=== PATIENT | male | born 1975 | race Hispanic/Latino ===

== ENCOUNTER 2018-07-31 17:28 | Emergency (ER) | payer BC ==
[2018-07-31] MEDS ORDERED: Sodium Chloride 0.9% 1,000 ML IV SCH (19:00)
[2018-07-31 19:26] LABS: BASO # 0.1 K/uL (0.0-0.2); BASO % 0.6 % (0.0-2.0); EOS # 0.1 K/uL (0.0-0.7); HEMOGLOBIN 13.9 g/dL (12.0-18.0); LYMPH # 0.7 K/uL (1.0-4.3); LYMPH % 6.2 % (20.0-40.0); MEAN CELL VOLUME 89.2 fl (80.0-94.0); MEAN CORPUSCULAR HEMOGLOBIN 29.9 pg (27.0-31.0); MEAN CORPUSCULAR HGB CONC 33.5 g/dL (33.0-37.0); MEAN PLATELET VOLUME 7.7 fl (7.2-11.7); MONO # 0.9 K/uL (0.0-0.8); MONO % 7.7 % (0.0-10.0); NEUT # 9.7 K/uL (1.8-7.0); NEUT % 84.5 % (50.0-75.0); NRBC % 0.1 % (0.0-0.0); PLATELET COUNT 229 K/uL (130-400); RBC 4.64 Mil/uL (4.40-5.90); WHITE BLOOD COUNT 11.4 K/uL (4.8-10.8)
--- NOTE | 2018-07-31 19:39 | ED PDOC ---
HPI: Abdomen Time Seen by Provider: 07/31/18 18:28 Chief Complaint (Nursing): Abdominal Pain Chief Complaint (Provider): Abdominal Pain, Nausea History Per: Patient History/Exam Limitations: no limitations Onset/Duration Of Symptoms: Hrs (since 1300 today) Current Symptoms Are (Timing): Still Present Pain Scale Rating Of: 7 Location Of Pain/Discomfort: RLQ Quality Of Discomfort: Sharp Additional Complaint(s): 43 year old male presents to the ED for evaluation of 7/10 sharp right lower quadrant abdominal pain associated with nausea onset 1300 today. Patient states that the pain is constant and worsening, but has taken no medications prior to arrival. Otherwise, (-) vomiting, (-) diarrhea, (-) fever, (-) chills, (-) cough , (-) shortness of breath, (-) urinary sx, (-) hx of abdominal surgery, (-) hx of renal colic. PMD: Jenniffer Cohen Past Medical History Reviewed: Historical Data, Nursing Documentation, Vital Signs Vital Signs: Last Vital Signs Temp 98.6 F 08/01/18 01:26 Pulse 82 08/01/18 01:26 Resp 18 08/01/18 01:26 BP 148/72 08/01/18 01:26 Pulse Ox 97 08/02/18 00:01 - Medical History PMH: HTN - Surgical History Surgical History: No Surg Hx - Family History Family History: States: Unknown Family Hx - Social History Current smoker - smoking cessation education provided: No Alcohol: Social Drugs: Denies - Home Medications Home Medications: Ambulatory Orders Medication Instructions Recorded Amlodipine Besylate/Benazepril 1 cap PO DAILY #30 cap 08/01/18 [Amlodipine Besylate and Benazepril HCl 5 mg-4] Ibuprofen [Motrin Tab] 800 mg PO Q8 PRN #20 tab 08/01/18 Tamsulosin [Flomax] 0.4 mg PO DAILY #7 cap 08/01/18 traMADol [Ultram] 50 mg PO Q6H PRN #12 tab 08/01/18 - Allergies Allergies/Adverse Reactions: Allergies Allergy/AdvReac Type Severity Reaction Status Date / Time No Known Allergies Allergy Verified 07/31/18 18:08 Review of Systems ROS Statement: Except As Marked, All Systems Reviewed And Found Negative Constitutional: Negative for: Fever, Chills Respiratory: Negative for: Cough, Shortness of Breath Gastrointestinal: Positive for: Nausea, Abdominal Pain (RLQ). Negative for: Vomiting, Diarrhea Genitourinary Male: Negative for: Dysuria, Frequency Physical Exam - Reviewed Nursing Documentation Reviewed: Yes Vital Signs Reviewed: Yes - Physical Exam Comments: GENERAL APPEARANCE: Patient is awake, alert, oriented x3. Patient is obese, but resting comfortably, in no acute distress SKIN: Warm, dry; (-) cyanosis. EYES: (-) conjunctival pallor, (-) scleral icterus. ENMT: Mucous membranes moist. Airway patent, (-) stridor. NECK: Supple, FROM CHEST AND RESPIRATORY: (-) rales, (-) rhonchi, (-) wheezes; breath sounds equal bilaterally. Respirations even and nonlabored. HEART AND CARDIOVASCULAR: (-) irregularity ABDOMEN AND GI: Soft (-) distention. Bowel sounds active x4; (+) right lower quadrant tenderness (-) guarding (+) mild McBurney's point tenderness, (-) rebound, (-) palpable masses, (-) CVA tenderness. EXTREMITIES: (-) deformity NEURO AND PSYCH: Mental status as above; (-) focal findings. Gait: steady. Speech: Clear. (-) aphasia - Laboratory Results Result Diagrams: 07/31/18 19:14 07/31/18 19:12 - ECG O2 Sat by Pulse Oximetry: 97 (RA) Pulse Ox Interpretation: Normal Medical Decision Making Medical Decision Making: Time: 1845 Initial Impression: abdominal pain, nausea, r/o appendicitis Initial Plan: --CMP --Lipase --Urine dipstick --CBC with differential --Normal saline IV --Pepcid 40mg IVP --Toradol 30mg IVP --Zofran 4mg IVP --CT abd/pelvis with PO and IV contrast --Omnipaque 50ml PO 1999 Case endorsed to Rai Hall PA-C pending lab/CT results, re-evaluation, and further disposition. Scribe Attestation: Documented by Sonia Jack, acting as a scribe for Linda Santiago PA-C. Provider Scribe Attestation: All medical record entries made by the Scribe were at my direction and personally dictated by me. I have reviewed the chart and agree that the record accurately reflects my personal performance of the history, physical exam, medical decision making, and the department course for this patient. I have also personally directed, reviewed, and agree with the discharge instructions and disposition. Disposition - Clinical Impression Clinical Impression: Abdominal pain - Patient ED Disposition Is Patient to be Admitted: Transfer of Care (Case endorsed to Rai Hall PA-C pending lab/CT results, re-evaluation, and further disposition.) - Disposition Disposition: Transfer of Care (Case endorsed to Rai Hall PA-C pending lab/ CT results, re-evaluation, and further disposition.) Disposition Time: 20:00 Condition: STABLE Prescriptions: Amlodipine Besylate/Benazepril [Amlodipine Besylate and Benazepril HCl 5 mg-4] 1 cap PO DAILY #30 cap Ibuprofen [Motrin Tab] 800 mg PO Q8 PRN #20 tab PRN Reason: Pain, Moderate (4-7) Tamsulosin [Flomax] 0.4 mg PO DAILY #7 cap traMADol [Ultram] 50 mg PO Q6H PRN #12 tab PRN Reason: Pain, Moderate (4-7) - POA Present On Arrival: None
[2018-07-31] MEDS ORDERED: Iohexol 240 (50 ml) PO ONE (19:47)
[2018-07-31 19:49] LABS: ALB/GLOB RATIO 1.4 (1.0-2.1); ALBUMIN 4.1 g/dL (3.5-5.0); CALCIUM 8.6 mg/dL (8.4-10.2); GFR NON-AFRICAN AMERICAN > 60; LIPASE 36 U/L (23-300)
[2018-07-31 20:18] LABS: ALT/SGPT 65 U/L (21-72); AST/SGOT 42 U/L (17-59); BLOOD UREA NITROGEN 21 mg/dl (9-20)
--- NOTE | 2018-07-31 20:19 | ED PDOC ---
- Laboratory Results Result Diagrams: 07/31/18 19:14 07/31/18 19:12 Urine dip results: Positive for: Blood (moderate). Negative for: Leukocyte Esterase, Nitrate, Ketones, Glucose, Bilirubin, Protein - ECG O2 Sat by Pulse Oximetry: 97 (RA) Pulse Ox Interpretation: Normal - Other Rad CT abd and pelvis with oral and IV contrast X-Ray: Read By Radiologist X-Ray Interpretation: see below Medical Decision Making Medical Decision Making: Case was signed out to advertising copy writer from [place] Santiago pending labs and CT. 8:15 pm: patient assessed by advertising copy writer, patient is resting comfortably, his pain or nausea at this time. Patient is drinking contrast. CT: IMPRESSION: 1. Distal right ureteral stone measuring 4 mm with mild proximal urinary tract dilation and edematous appearance of the right kidney, possibly representing evolving obstruction. RECOMMEND urology consultation. 2. Hepatic steatosis. 12:45 am: Patient is aware of CT results, all questions answered. Patient states he is pain-free at this time. Above results were d/w Dr. Reynolds ED attending. Patient was advised to follow-up with urology. He is also aware he can return any time to ED if acutely worse. Patient given prescriptions for Motrin, tramadol and Flomax. Advised fluids, urinary strainer provided. Disposition - Clinical Impression Clinical Impression: Ureteral stone - POA Present On Arrival: None - Disposition Referrals: Cody Rodriguez Jr., MD [Staff Provider] - Disposition: Routine/Home Disposition Time: 00:38 Condition: STABLE Additional Instructions: Take rx meds as directed. Drink plenty of fluids. Use strainer when urinating. Follow up in 2-3 days with urologist or return any time if acutely worse. Prescriptions: Amlodipine Besylate/Benazepril [Amlodipine Besylate and Benazepril HCl 5 mg-4] 1 cap PO DAILY #30 cap Ibuprofen [Motrin Tab] 800 mg PO Q8 PRN #20 tab PRN Reason: Pain, Moderate (4-7) Tamsulosin [Flomax] 0.4 mg PO DAILY #7 cap traMADol [Ultram] 50 mg PO Q6H PRN #12 tab PRN Reason: Pain, Moderate (4-7) Instructions: Kidney Stones in Adults, Renal Colic Forms: Retail Info (Moroccan) Results - Lab Results Lab Results: 07/31/18 07/31/18 19:14 19:12 WBC 11.4 H RBC 4.64 Hgb 13.9 Hct 41.4 MCV 89.2 MCH 29.9 MCHC 33.5 RDW 15.0 H Plt Count 229 MPV 7.7 Neut % (Auto) 84.5 H Lymph % (Auto) 6.2 L [place] % (Auto) 7.7 Eos % (Auto) 1.0 Baso % (Auto) 0.6 Neut # (Auto) 9.7 H Lymph # (Auto) 0.7 L [place] # (Auto) 0.9 H Eos # (Auto) 0.1 Baso # (Auto) 0.1 Neutrophils % (Manual) 79 H Band Neutrophils % 4 H Lymphocytes % (Manual) 10 L Monocytes % (Manual) 5 Eosinophils % (Manual) 1 Basophils % (Manual) 1 Platelet Estimate Normal Hypochromasia (manual) Slight Sodium 138 Potassium 4.6 Chloride 106 Carbon Dioxide 25 Anion Gap 12 BUN 21 H Creatinine 1.1 Est GFR ( Amer) > 60 Est GFR (Non-Af Amer) > 60 Random Glucose 126 H Calcium 8.6 Total Bilirubin 0.6 AST 42 ALT 65 Alkaline Phosphatase 67 Total Protein 7.1 Albumin 4.1 Globulin 3.0 Albumin/Globulin Ratio 1.4 Lipase 36
[2018-07-31 20:46] LABS: BANDS 4 % (0-2); BASOPHIL 1 % (0-2); EOSINOPHIL 1 % (0-7); LYMPHOCYTE 10 % (20-50); MONOCYTE 5 % (0-10); NEUTROPHIL 79 % (42-75); PLATELET ESTIMATE NORMAL (NORMAL); TOTAL CELLS COUNTED 100
[2018-07-31 20:47] LABS: HYPOCHROMIC SLIGHT
[2018-07-31] MEDS ORDERED: Iohexol 240 (50 ml) ONE (21:00)
[2018-07-31] MEDS ORDERED: Sodium Chloride 0.9% 50 ML IV ONE (22:48)
[2018-07-31] MEDS ORDERED: Iohexol 300 100 ML IJ ONE (22:48)
[2018-08-01 01:27] VITALS: BP 148/72; PULSE 82; RESP 18; TEMP 98.6
--- NOTE | 2018-08-01 11:27 | CT ---
Date of service: 07/31/2018 PROCEDURE: CT Abdomen and Pelvis with contrast HISTORY: RLQ pain, nausea COMPARISON: None. TECHNIQUE: Following the intravenous administration of iodinated contrast material, a CT examination of the abdomen and pelvis performed from the domes of the diaphragms to the symphysis pubis with reformatted datasets provided in axial, sagittal and coronal planes. Oral contrast was not administered as per referring physician request. Contrast dose: Omnipaque 300, 100 cc Radiation dose: Total exam DLP = 963.76 mGy-cm. This CT exam was performed using one or more of the following dose reduction techniques: Automated exposure control, adjustment of the mA and/or kV according to patient size, and/or use of iterative reconstruction technique. FINDINGS: LOWER THORAX: Unremarkable. LIVER: Liver is not enlarged and there is no focal mass identified or intrahepatic biliary dilatation. Its attenuation is diminished compatible with diffuse hepatic steatosis. GALLBLADDER AND BILE DUCTS: Unremarkable. PANCREAS: Unremarkable. No gross lesion or ductal dilatation. SPLEEN: Unremarkable. ADRENALS: Unremarkable. No mass. KIDNEYS AND URETERS: Mild right hydroureter is appreciated, caused by 3 mm calcified the distal right ureter close but still proximal to right ureterovesical junction. No left-sided obstructive uropathy. Limited right perinephric reaction is present as well as delayed right nephrogram. No additional radiodense urolithiasis identified bilaterally. VASCULATURE: Unremarkable. No aortic aneurysm. BOWEL: Evaluation of the gastrointestinal tract is limited due the lack of oral contrast administration. No bowel obstruction appreciable. Borderline sigmoid diverticulitis without diverticulitis. APPENDIX: Normal appendix. PERITONEUM: Unremarkable. No free fluid. No free air. LYMPH NODES: Unremarkable. No enlarged lymph nodes. BLADDER: Unremarkable. REPRODUCTIVE: Unremarkable. BONES: No acute fracture. OTHER FINDINGS: None. IMPRESSION: Mild right-sided obstructive uropathy including the right kidney and ureter caused by 3 mm calculus obstructing distal right ureter immediately proximal to the level of the right UV junction at this time. No left-sided obstructive uropathy or radiodense urolithiasis bilaterally. Mild hepatic steatosis. Concordant preliminary report from [facility], 07/31/2018.
[2018-08-02 00:01] VITALS: O2SAT 97
== END 2018-08-01 01:15 | disposition home or self-care (01) ==
LOC: H.ER 17:28
DX: N20.1 Calculus of ureter (principal); I10 Essential (primary) hypertension
CPT/HCPCS: 74177; 80053; 83690; 85025; 96361; 96374; 96375; 99284; J1885; J2405; J7040; Q9966; Q9967